=== PATIENT | female | born 1945 | race Caucasian/White ===

== ENCOUNTER 2021-10-21 08:07 | Day surgery (SDC) | payer MEDICARE, BC ==
[~2021-10-21] VITALS: Ht 160 cm; Wt 104.8 kg
[2021-10-21] VITALS (10 sets, daily range): BP systolic 84–115; BP diastolic 31–66
[2021-10-21] MEDS ORDERED: VANCOMYCIN 1,500MG inj. 1,500 MG in normal saline 250ml IV soln 300 ML IV ONE (08:45)
[2021-10-21] MEDS ORDERED: cefazolin/dext.iso 2gm/50ml 50 ML IV ONE (08:45)
[2021-10-21] MEDS ORDERED: DILT120C91 PO (09:11)
[2021-10-21] MEDS ORDERED: TELM80TA9 PO (09:11)
[2021-10-21] MEDS ORDERED: LEVO137T19 PO (09:11)
[2021-10-21] MEDS ORDERED: APIX5TAB3 PO (09:11)
[2021-10-21] MEDS ORDERED: FURO20TA4 PO (09:11)
[2021-10-21] MEDS ORDERED: DIGO125T PO (09:11)
[2021-10-21 09:37] LABS: BASOPHILS # (AUTO) 0.1 X10'3 (0-0.2); BASOPHILS % (AUTO) 0.6 % (0-1); EOSINOPHILS # (AUTO) 0.1 X10'3 (0-0.9); EOSINOPHILS % (AUTO) 0.8 % (0-6); HEMATOCRIT 38.4 % (35.0-45.0); HEMOGLOBIN 12.9 g/dl (12.0-16.0); LYMPHOCYTES # (AUTO) 1.2 X10'3 (1.1-4.8); LYMPHOCYTES % (AUTO) 9.8 % (21-51); MEAN CORPUSCULAR HEMOGLOBIN 31.7 PG (27.0-31.0); MEAN CORPUSCULAR HGB CONC 33.5 g/dL (33.0-36.5); MEAN CORPUSCULAR VOLUME 94.6 FL (78-98); MEAN PLATELET VOLUME 7.7 FL (7.4-10.4); MONOCYTES # (AUTO) 0.7 X10'3 (0-0.9); MONOCYTES % (AUTO) 5.6 % (2-12); NEUTROPHILS % (AUTO) 83.2 % (42-75); PLATELET COUNT 277 X10'3 (140-440); RED BLOOD COUNT 4.06 X10'6 (4.20-5.60); RED CELL DISTRIBUTION WIDTH 14.3 % (11.5-14.5)
[2021-10-21 09:41] LABS: ALBUMIN 3.8 G/DL (3.4-5.0); ANION GAP 11 (8-16); BLOOD UREA NITROGEN 23 MG/DL (7-18); BUN/CREATININE RATIO 16.5 (6.6-38.0); CALCIUM 9.7 MG/DL (8.5-10.1); CHLORIDE 101 MMOL/L (99-107); CREATININE 1.39 MG/DL (0.40-0.90); GLUCOSE 119 MG/DL (70-104); MAGNESIUM 2.2 MG/DL (1.5-2.4); POTASSIUM 4.1 MMOL/L (3.5-5.1); SODIUM 136 MMOL/L (135-145); TOTAL CARBON DIOXIDE 24.5 MMOL/L (24-32); eGFR 37 ML/MIN
[2021-10-21] MEDS ORDERED: vancomycin 1,000mg inj ONE (10:11)
[2021-10-21] MEDS ORDERED: midazolam 1 mg/ML 2ml injection ONE ×3 (10:11→11:23)
[2021-10-21] MEDS ORDERED: fentaNYL/PF 50MCG/1 ML 2ML syringe ONE ×2 (10:11→11:25)
[2021-10-21] MEDS ORDERED: LIDOCAINE 2% w/EPI 1:100:000 30mL injection MDV**cath lab 1 only ONE (10:12)
[2021-10-21] MEDS ORDERED: iohexol 350 MG/ML 50ML vial IV ONE (10:52)
[2021-10-21] MEDS ORDERED: metoprolol tartrate 1mg/ml inj IV ONE ×3 (11:04→11:27)
[2021-10-21] MEDS ORDERED: morphine 2 MG/ML inj. syringe ONE (11:30)
[2021-10-21] MEDS ORDERED: ketorolac tromethamine 15mg/ml inj. IV ONE (11:50)
[2021-10-21] MEDS ORDERED: HYDROcodone/acetaminophen 5mg/325mg tablet PO PRN (12:35)
== END 2021-10-21 15:30 | disposition home or self-care (01) ==
LOC: SSTAY O 08:07
PROVIDERS: ATTEND Internal Medicine Cardiovascular Disease
DX: I49.5 Sick sinus syndrome (principal); I48.19 Other persistent atrial fibrillation; I10 Essential (primary) hypertension; I27.23 Pulmonary hypertension due to lung diseases and hypoxia; E03.9 Hypothyroidism, unspecified; Z85.850 Personal history of malignant neoplasm of thyroid; Z96.642 Presence of left artificial hip joint; Z98.890 Other specified postprocedural states; Z79.899 Other long term (current) drug therapy
CPT/HCPCS: 33208; 36415; 71045; 80048; 83735; 85025; 85610; 93005; 99152; 99153; C1785; C1894; C1898; J0690; J2250; J2270; J3010; J3370; J3490; J7050; Q9967; 33217; A4620; A6258

== ENCOUNTER 2022-01-20 07:56 | Day surgery (SDC) | payer MEDICARE, BC ==
[~2022-01-20] VITALS: Ht 160 cm; Wt 111.6 kg
[~2022-01-20 07:56] MED LIST: APIX5TAB3 PO; DIGO125T PO; DILT120C91 PO; FURO20TA4 PO; LEVO137T19 PO; TELM80TA9 PO
[2022-01-20 08:13] VITALS: BP 126/58
[2022-01-20] MEDS ORDERED: DILT240C92 PO (08:33)
[2022-01-20] MEDS ORDERED: METO-384 PO (08:33)
[2022-01-20] MEDS ORDERED: AMIO200T27 PO (08:33)
--- NOTE | 2022-01-20 08:40 | NUR ---
Dr. Vallejo in to see pt and review EKG. pt not in Afib per Dr. Vallejo, no cardioversion necessary. d/c pt
[2022-01-20] MEDS ORDERED: fentaNYL/PF 50MCG/1 ML 2ML syringe IV ONE (08:45)
[2022-01-20] MEDS ORDERED: MIDAZolam 1mg/ml 10ml vial IV ONE (08:45)
[2022-01-20] MEDS ORDERED: normal saline 1000ml 1,000 ML IV SCH (08:45)
--- NOTE | 2022-01-20 08:50 | NUR ---
pt discharged in stable condition. no procedure done. pt not in afib. all belongings sent home with pt. pt ambulated to private vehicle. pt will follow up with Dr. Farr.
== END 2022-01-20 08:50 | disposition home or self-care (01) ==
LOC: SSTAY O 07:56
PROVIDERS: ATTEND Internal Medicine Cardiovascular Disease
DX: Z03.89 Encounter for observation for other suspected diseases and conditions ruled out (principal); Z53.8 Procedure and treatment not carried out for other reasons
CPT/HCPCS: 93005; A4620; J7030